=== PATIENT | male | born 1950 | race American Indian/Alaskan Native ===

== ENCOUNTER 2019-11-08 10:29 | Outpatient (CLI) | payer MEDICARE ==
[2019-11-08 11:16] LABS: Basophils # (Auto) 0.1 K/mm3 (0.0-0.1); Basophils % (Auto) 1.1 % (0.0-1.8); Eosinophils # (Auto) 0.2 K/mm3 (0.0-0.4); Eosinophils % (Auto) 3.6 % (0.0-4.3); Hematocrit 37.3 % (35.5-45.6); Hemoglobin 12.7 gm/dl (11.8-15.2); Lymphocytes # (Auto) 1.5 K/mm3 (1.2-5.4); Lymphocytes % (Auto) 27.8 % (13.4-35.0); Mean Corpuscular HGB Conc 34 % (32-34); Mean Corpuscular Volume 95 fl (84-94); Monocytes # (Auto) 0.6 K/mm3 (0.0-0.8); Monocytes % (Auto) 11.6 % (0.0-7.3); Platelet Count 393 K/mm3 (140-440); Red Blood Count 3.93 M/mm3 (3.65-5.03); Red Cell Distribution Width 13.5 % (13.2-15.2)
[2019-11-08 11:32] LABS: Alanine Aminotransferase 27 units/L (7-56); Albumin 4.1 g/dL (3.9-5); BUN/Creatinine Ratio 13; Blood Urea Nitrogen 18 mg/dL (9-20); Chol/HDL Ratio 4.07 %; HDL Cholesterol 40 mg/dL (40-59); Hemolysis Index 2; LDL Cholesterol,Direct 112 mg/dL (50-130)
--- NOTE | 2019-11-08 14:05 | XRay Report ---
CHEST 2 VIEWS INDICATION: J84.10 PULMONARY FIBROSIS. COMPARISON: None FINDINGS: Support devices: None. Heart: Within normal limits. Lungs/pleura: Low lung volumes. The interstitium is prominent in the basilar and peripheral regions o f both lungs suggestive of idiopathic pulmonary fibrosis. No obvious mass, infiltrate, pleural fluid or pneumothorax. Additional findings: None. IMPRESSION: Findings are suggestive of idiopathic pulmonary fibrosis. Signer Name: Jacques Valenzuela Jr, MD Signed: 11/08/2019 2:01 PM Workstation Name: [id number]
--- NOTE | 2019-11-08 14:11 | Cat Scan Report ---
CT CHEST WITH CONTRAST INDICATION / CLINICAL INFORMATION: J84.10 PULMONARY FIBROSIS/CHRONIC. TECHNIQUE: Axial CT images were obtained through the chest after 100 IV contrast. Sagittal and coronal reformatt ed images. All CT scans at this location are performed using CT dose reduction for ALARA by means of automated exposure control. COMPARISON: None available. FINDINGS: HEART: No significant abnormality. THORACIC AORTA: No significant abnormality. MEDIASTINUM and MANDO: No significant abnormality. No pathologic adenopathy. LUNGS: Moderate fibrotic changes with honeycombing is identified in a peripheral basilar distribution consistent with idiopathic pulmonary fibrosis. There is mild septal thickening in the upper lung zon es. There is a 1.1 cm slightly spiculated nodule near the left lung apex are on image 27, series 2. No other nodule is appreciated. No infiltrate. PLEURA: No significant pleural effusion. No pneumothorax. SKELETAL SYSTEM: No significant abnormality. UPPER ABDOMEN: No significant abnormality. ADDITIONAL FINDINGS: None. IMPRESSION: Findings consistent with idiopathic pulmonary fibrosis. Slightly suspicious 1.1 cm nodule near the left lung apex. Consider follow-up in 6 months. Signer Name: Jacques Valenzuela Jr, MD Signed: 11/08/2019 2:07 PM Workstation Name: [id number]
[2019-11-14 20:18] LABS: Myeloperoxidase Antibody <1.0 AI (<1.0)
== END 2019-11-08 10:30 | disposition home or self-care (01) ==
LOC: CT 10:29
PROVIDERS: ATTEND Internal Medicine
DX: J84.112 Idiopathic pulmonary fibrosis (principal)
CPT/HCPCS: 36415; 71046; 71260; 80053; 80061; 82164; 82785; 84436; 84443; 85025; 86021; 86618; Q9967